=== PATIENT | male | born 2000 | race Caucasian/White ===

== ENCOUNTER 2024-12-27 17:13 | Emergency (ER) | payer OTHER, SELFPAY ==
[2024-12-27 17:16] VITALS: BP 177/114
--- NOTE | 2024-12-27 17:32 | ED.GENMED ---
History of Present Illness
General
Chief Complaint: Suicidal Ideation
Source: patient
Exam Limitations: none
Time Seen by Provider: 12/27/24 17:24
History of Present Illness
History of Present Illness:
See MDM
Past History
Past History
ED Past Medical History: Psychiatric
ED Past Surgical History: None
Social History
Tobacco: Former smoker
Alcohol: Former
Phy Exam
Physical Exam
Physical Exam:
See MDM
Course
Orders/Labs/Results
Orders:
Orders
12/27/24 17:18
1:1 Observation - Suicide/ Violent Behavior As Directed
Crisis Consult Urgent
Reason for Consult: SI
12/27/24 18:51
Urine Drug Abuse Screen Urgent
Date Specimen was Collected: 12/27/24
Time Specimen was Collected: 18:49
Abnormal Lab Results
12/27/24
18:51
U Marijuana (THC) Screen Positive H
(Negative)
Vital Signs
Initial and Last Documented VS:
Initial Vital Signs
Temp Pulse Resp BP Pulse Ox
98.1 F 91 16 177/114 98
12/27/24 17:16 12/27/24 17:16 12/27/24 17:16 12/27/24 17:16 12/27/24 17:16
Last Documented Vital Signs
Temp Pulse Resp BP Pulse Ox
98.1 F 91 16 177/114 98
12/27/24 17:16 12/27/24 17:16 12/27/24 17:16 12/27/24 17:16 12/27/24 17:16
MDM/Problems Addressed
Differential Diagnosis Includes:
HPI and MDM Narrative:
24-year-old male presenting for evaluation of suicidal thoughts. Patient states he has been under a lot of stress recently and him and his just filed for separation today. Patient states this was the tipping point. Patient is high risk
because he does have guns in the house and he has thought about using them. He is willing to go inpatient. He has tried outpatient therapy but states he does not work. He recently stopped seeing his therapist as well.\\
Patient states he is trying to be a better person and he stopped marijuana 6 days ago and stopped alcohol 4 days ago.
Will have crisis evaluated for inpatient psychiatric
Physical exam
General: Well appearing and non-toxic
HEENT: protecting airway
Neck: appears supple
CV: No evidence of cyanosis
Resp: No accessory muscle use
Abd: Non-distended
Extremities: No deformities
Neuro: alert
Psych: depressed affect
Skin: Intact
Problems Addressed including Acute and Chronic Conditions affecting care:
1. Depression with suicidal thoughts
Acuity: acute
Prognosis: unstable
Details: Will of crisis evaluate for inpatient psychiatric placement
Update: Crisis indicating that patient excepted to [place]. Father is going to transport him there.
Differential Diagnosis (but not limited to): Depression, suicidal thoughts
Testing considered: Blood work
Drug therapy (if applicable): OTC meds, please see d/c instruction regarding Rx drugs
Amount and/or Complexity of Data Reviewed
Clinical info obtained from: Patient
External data reviewed: N/A
Labs I independently reviewed (but not limited to): N/A
Radiology: N/A
Pulse Ox: not hypoxic
EKG independently reviewed: N/A
Chief Of Staff Doctor: N/A
Critical Care: N/A
Risk of Complication:
Social Determinants of health: Good social support
Discussed with other providers: Crisis
Escalation of Care includes Admit/Obs: Given his depression with suicidal thoughts and plan, will have crisis evaluate for bed search
Occasional wrong word or 'sound a like' substitutions may have occurred due to the inherent limitations of voice recognition software. Read the chart carefully and recognize, using context, where substitutions have occurred.
*Critical Care Note
Total Time (30-74mins, 75-104mins- exclusive of procedures): Not Applicable
ED Attending Note
-
Portions of this chart may have been created with voice recognition software.� Occasional wrong word or��sound alike� substitutions may have occurred due to the inherent limitations of voice recognition software.
Discharge Plan
Departure
Patient Disposition: Psych Facility
Date of Disposition: 12/27/24
Time of Disposition: 17:45
Discharge Problem:
Depression
Interventions
Interventions:
*Risk Screen - Suicide Last Done: 12/27/24 17:15
*General Assessment Last Done: 12/27/24 17:53
*Neglect/Abuse Screening Last Done: 12/27/24 17:53
ED- Fall Risk Assessment Last Done: 12/27/24 19:04
*ED COVID-19 Vaccine History Last Done: 12/27/24 19:04
ED-Psychological Assessment Last Done: 12/27/24 17:53
Discharge Date and Time
Print Language: MACEDONIAN
[2024-12-27 19:14] LABS: Amphetamines Negative (Negative); Barbiturates Negative (Negative); Benzodiazepines Negative (Negative); Buprenorphine Negative (Negative); Cocaine Negative (Negative); Marijuana Positive (Negative); Methadone Negative (Negative); Methamphetamines Negative (Negative); Opiates Negative (Negative); Phencyclidine Negative (Negative); Tricyclic Antidepressants Negative (Negative)
[2024-12-27 19:29] VITALS: BP 150/90
== END 2024-12-27 20:05 ==
LOC: EMR 17:13
PROVIDERS: EMERGENCY PHYSICIAN Student in an Organized Health Care Education/Training Program; FAMILY PHYSICIAN Internal Medicine
DX: F32.A Depression, unspecified (principal); Z87.891 Personal history of nicotine dependence
CPT/HCPCS: 99285; 80306

== ENCOUNTER 2025-02-13 16:27 | Emergency (ER) | payer OTHER, SELFPAY ==
[2025-02-13 16:29] VITALS: BP 149/88
--- NOTE | 2025-02-13 16:53 | ED.GENMED ---
History of Present Illness
General
Chief Complaint: Crisis Evaluation
Time Seen by Provider: 02/13/25 16:53
History of Present Illness
History of Present Illness:
TIME OF INITIAL ENCOUNTER: 5 PM
HPI: The patient tells me that he has been depressed with suicidal thoughts for 'years'. He has most recently been to [place] as an inpatient and also had an outpatient partial hospitalization program. He saw his psychiatrist about 2 weeks ago.
He has tried several different medications with multiple side effects that he could not tolerate. He is just on Prozac. He tells me that he has no plan. He has been depressed/upset as he is going through a separation with his . He has no
medical complaints.
EXAM:
GENERAL: Well appearing in no distress
HEENT: Moist oral mucosa
CARDIOVASCULAR: No murmurs, normal heart rate, regular rhythm, No chest wall tenderness
PULMONARY: No respiratory distress, breath sounds are clear and equal
ABDOMEN: Soft with no peritoneal signs, no tenderness
NEUROLOGIC: Excellent strength all extremities, no coordination deficits
PSYCHIATRIC: Appropriate mental status, normal insight and judgement
EXTREMITIES: Nontender, no edema, moves all extremities equally
SKIN: No rash, no lesions
NUMBER AND COMPLEXITY OF PROBLEMS ADDRESSED AT THE ENCOUNTER
� Chronic conditions affecting care: Anxiety/depression
� Acute Exacerbation and/or Progression of Chronic Illness: This is an acute problem
� Differential Diagnosis includes: Depression, suicidal ideation without plan
AMOUNT AND/OR COMPLEXITY OF DATA TO BE REVIEWED AND ANALYZED
� I performed an independent evaluation of and my interpretation is:
EKG:
CT:
X-rays:
Laboratory Studies:
Other:
� Review of other/old records: I reviewed records, the patient was seen here by crisis December 28, 2024 also with depression
� Clinical information was obtained by an independent historian: None needed
� Prescriptions/Medications Considered but not given:
� Further testing considered but not performed:
RISK OF COMPLICATIONS AND/OR MORBIDITY OR MORTALITY OF PATIENT MANAGEMENT
� Social determinants of health affecting care: Lives at home with parents
� Discussion with other providers: I asked for crisis consult shortly after initial evaluation.
� Escalation of care including admission/observation vs risk of discharge considered:
ANY OTHER UPDATES:
6:30 PM: I spoke to crisis. Crisis recommends continued outpatient follow-up and they did give him information for partial hospitalization program. I feel this is reasonable as the patient has had no plan. Patient appears comfortable with this.
He already has a psychiatrist to follow-up with and I suggested that he calls that psychiatrist tomorrow for any further recommendations.
Past History
Past History
ED Past Medical History: Psychiatric
ED Past Surgical History: None
Social History
Tobacco: Former smoker
Alcohol: Former
Phy Exam
Physical Exam
Physical Exam:
See HPI
Course
Orders/Labs/Results
Orders:
Orders
02/13/25 16:35
1:1 Observation - Suicide/ Violent Behavior As Directed
Crisis Consult Urgent
Reason for Consult: depression, SI
Vital Signs
Initial and Last Documented VS:
Initial Vital Signs
Temp Pulse Resp BP Pulse Ox
36.8 C 63 18 149/88 100
02/13/25 16:29 02/13/25 16:29 02/13/25 16:29 02/13/25 16:29 02/13/25 16:29
Last Documented Vital Signs
Temp Pulse Resp BP Pulse Ox
36.8 C 63 18 149/88 100
02/13/25 16:29 02/13/25 16:29 02/13/25 16:29 02/13/25 16:29 02/13/25 16:29
*Critical Care Note
Total Time (30-74mins, 75-104mins- exclusive of procedures): Not Applicable
ED Attending Note
-
Portions of this chart may have been created with voice recognition software.� Occasional wrong word or��sound alike� substitutions may have occurred due to the inherent limitations of voice recognition software.
Discharge Plan
Departure
Patient Disposition: Home (Routine Discharge)
Date of Disposition: 02/13/25
Time of Disposition: 18:32
Patient with high blood pressure during this ER visit?: Yes
Discharge Problem:
Depression
Instructions: Depression, Adult (DC), BLOOD PRESSURE
Referrals:
Ebony Mclain NP [Family Provider] -
Activity Restrictions/Additional Instructions:
Follow-up as recommended by the crisis workers here. Return here if worse or other concerns.
Interventions
Interventions:
*Risk Screen - Suicide Last Done: 02/13/25 16:29
*General Assessment Last Done: 02/13/25 16:29
*Neglect/Abuse Screening Last Done: 02/13/25 16:29
ED-Psychological Assessment Last Done: 02/13/25 16:54
Discharge Date and Time
Print Language: YI
== END 2025-02-13 19:20 | disposition home or self-care (01) ==
LOC: EMR 16:27
PROVIDERS: EMERGENCY PHYSICIAN Emergency Medicine; FAMILY PHYSICIAN Internal Medicine
DX: R45.851 Suicidal ideations (principal); F32.A Depression, unspecified; Z63.5 Disruption of family by separation and divorce; R03.0 Elevated blood-pressure reading, without diagnosis of hypertension; F41.9 Anxiety disorder, unspecified; Z87.891 Personal history of nicotine dependence; Z88.0 Allergy status to penicillin
CPT/HCPCS: 99283